=== PATIENT | male | born 1970 | race Caucasian/White ===

== ENCOUNTER 2025-06-10 16:46 | Emergency (ER) | payer OTHER, SELFPAY ==
--- NOTE | 2025-06-10 17:00 | EKG_ITS ---
[address] [address] Test Date: 2025-06-10 Pat Name: Og Christian Department: Room: Gender: Male Neuropsychologist: LEELA : 1970 Requested By: Order Number: [id number] Reading MD: Filippo Jackson Measurements Intervals Burton Rate: 78 P: 70 MA: 142 QRS: 25 QRSD: 84 T: 16 QT: 372 QTc: 424 Interpretive Statements Normal sinus rhythm Electronically Signed On 06-11-2025 8:15:59 PDT by Filippo Jackson
--- NOTE | 2025-06-10 17:00 | DI.RAD.S_ITS ---
PROCEDURE: XR CHEST 1V INDICATIONS: Chest Pain TECHNIQUE: One view of the chest was acquired. COMPARISON: None. FINDINGS: Surgical changes and devices: None. Lungs and pleura: Lungs are clear. No pleural effusions or pneumothorax. Mediastinum: Mediastinal contours appear normal. Heart size is normal. Bones and chest wall: No suspicious bony lesions. Overlying soft tissues appear unremarkable. IMPRESSION: No acute cardiopulmonary abnormality is seen. Dictated by: Uzair Christensen M.D. on 06/10/2025 at 17:14 Approved by: Uzair Christensen M.D. on 06/10/2025 at 17:15
[2025-06-10 17:01] VITALS: BP 146/68; PULSE 75; RESP 14; TEMP 36.6; O2SAT 96; BMI 25.7
[2025-06-10 17:25] LABS: Add Manual Diff / Slide Review NO; Hematocrit 47.8 % (41-53); Hemoglobin 16.7 g/dL (13.5-17.5); Lymphocytes Absolute Auto 1100 /uL (1100-4500); Mean Corpuscular HGB Conc 34.9 % (30-36); Mean Corpuscular Hemoglobin 32.8 PG (26-34); Mean Corpuscular Volume 93.9 fL (80-100); Platelet Count 266 X10^3/uL (150-400)
[2025-06-10 17:36] LABS: INR 0.9 (0.9-1.3); Prothrombin Time 10.6 SECONDS (9.4-12.5)
[2025-06-10 17:39] LABS: PTT Partial Thromboplastin Tim 28 SECONDS (25.1-36.5)
[2025-06-10 17:40] LABS: Alanine Aminotransferase 42 IU/L (<50); Albumin 4.6 g/dL (3.5-5.0); Albumin Globulin Ratio 1.3 (1.0-2.8); Alkaline Phosphatase 58 U/L (38-126); Blood Urea Nitrogen 13 mg/dL (9-20); Calcium 9.2 mg/dL (8.4-10.2); Carbon Dioxide 29 mmol/L (22-32); Chloride 103 mmol/L (98-107); Creatine Kinase 230 U/L (55-170); Estimated Glomerular Filt Rate > 60 mL/min (>60); Globulin 3.5 g/dL (1.7-4.1); Glucose 105 mg/dL (70-99); HEMOLYSIS < 15 (0-50); Lipase 118 U/L (23-300); Magnesium 1.8 mg/dL (1.6-2.3); Potassium 4.3 mmol/L (3.4-5.1); Sodium 139 mmol/L (137-145); Total Protein 8.1 g/dL (6.3-8.2)
[2025-06-10 17:52] LABS: NT-proBNP (BNP-Adult 18+) < 20 pg/mL (<125); Troponin I < 0.012 ng/mL (0.01-0.034)
--- NOTE | 2025-06-10 18:13 | ED.GENADULT ---
HPI - General Adult General Chief complaint: Syncope Stated complaint: Near syncope,pale,dizzy and diaphoretic Time Seen by Provider: 06/10/25 18:01 Source: patient Mode of arrival: EMS History of Present Illness HPI narrative: 54-year-old male patient with a history of tremors and BPH who complains of profound sweating at 9:30 a.m. for about 2 hours along with some lightheadedness and weakness but no confusion or chest pain. No documented fever or chills. He is suspecting a low sugar but did not measure his sugar. He has also, prediabetes. Currently feels back to normal. He had a similar episode about a week ago. Otherwise no complaints. He was seen at the clinic on [facility] and had lab work including a lactate of 3.0. Repeat lactate was 2.0. They advised he come here for further evaluation. Patient denies any cough or URI symptoms. No gastrointestinal infectious disease symptoms or dysuria. Related Data Allergies Allergy/AdvReac Type Severity Reaction Status Date / Time No Known Drug Allergies Allergy Verified 06/10/25 17:01 Review of Systems Review of Systems ROS Unobtainable: All systems reviewed & are unremarkable except as noted in HPI and below Constitutional Constitutional: Reports as per HPI Cardiovascular Cardiovascular: Reports as per HPI Neurologic Neurologic: Reports as per HPI Endocrine Endocrine: Reports as per HPI Patient History Social History Smoking Status: Unknown if ever smoked Smoking Status: Unknown if ever smoked tobacco type: smokeless tobacco Exam Narrative Exam Narrative: General: Alert and conversant. No distress. Appears well nourished and well hydrated Craniofacial: No evidence of trauma. Nontender and no swelling. Eyes: PERRLA EOMI conjunctiva clear HEENT: Oropharynx clear with no swelling, exudate or asymmetry of the pharynx. Nares clear. No sinus tenderness Neck: No tenderness or adenopathy. No meningismus. No JVD Lungs: Clear to auscultation with good air movement. No wheezing, rales or rhonchi. No respiratory distress Cardiac: Regular rate and rhythm with no appreciable murmur or gallop Abdomen: Soft, nontender with no distention or masses. Normal bowel sounds. No rebound or guarding Musculoskeletal: Exam of the extremities, axial spine and ribcage reveals no deformity, bony tenderness or swelling. Range of motion intact Neuro: Alert and oriented. Cranial nerves, motor, sensory and cerebellar all grossly intact. No focal deficit Skin: Warm and normal color. No rashes Psychological: Normal affect and interaction. No evidence of delusion or psychosis. Normal mood. Initial Vital Signs Initial Vital Signs: Vital Signs Temperature 97.8 F 06/10/25 17:01 Pulse Rate 75 06/10/25 17:01 Respiratory Rate 14 06/10/25 17:01 Blood Pressure 146/68 H 06/10/25 17:01 Pulse Oximetry 96 06/10/25 17:01 Oxygen Delivery Method Room Air 06/10/25 17:01 Course Orders Ordered: ED Orders 06/10/25 17:00 XR chest 1V Stat EKG-12 Lead Stat 06/10/25 17:13 Complete Blood Count AUTO DIFF Stat Comprehensive Metabolic Panel Stat Lipase Stat Magnesium Stat NT-proBNP (BNP-Adult 18+) Stat PTT Partial Thromboplastin Junior Stat Prothrombin Time INR Stat Troponin & CK Cardiac Panel Stat 06/10/25 19:36 Urinalysis and Microscopic Stat 06/10/25 19:54 Lactate (Lactic Acid) Stat Discontinued Medications Sodium Chloride (Normal Saline 0.9%) 1,000 mls @ 1,000 mls/hr IV BOLUS ONE Stop: 06/10/25 19:18 Last Infusion: 06/10/25 20:24 Dose: Infused Documented By: Admin: 06/10/25 19:06 Dose: 1,000 mls/hr Documented By: MARTIN Vital Signs Vital signs: Vital Signs - 8 hr 06/10/25 17:01 06/10/25 19:00 06/10/25 19:01 Temperature 97.8 F Pulse Rate 75 77 Respiratory Rate 14 Blood Pressure 146/68 H 120/60 Pulse Oximetry 96 94 Oxygen Delivery Method Room Air 06/10/25 19:01 06/10/25 19:07 06/10/25 19:30 Temperature Pulse Rate 80 78 Respiratory Rate Blood Pressure 138/84 Pulse Oximetry 95 95 Oxygen Delivery Method 06/10/25 19:47 Temperature Pulse Rate 86 Respiratory Rate 16 Blood Pressure 154/88 H Pulse Oximetry 98 Oxygen Delivery Method Medical Decision Making Differential Diagnosis Differential Diagnosis: Hypoglycemia, sepsis, endocrine imbalance or abnormality. Vasovagal presyn Condition is:: Improved (Asymptomatic currently) Lab Data Lab results reviewed: Yes I reviewed the patient's lab results. Lab results narrative: WBCs 11.2 with neutrophils of 88%. CMP and troponin negative. Only exception is CK of 230. 06/10/25 17:13 06/10/25 17:13 Labs: Lab Results 06/10/25 06/10/25 06/10/25 Range/Units 17:13 19:36 19:54 WBC 11.2 H (4.5-11.0) X10^3/uL RBC 5.09 (4.5-5.9) X10^6/uL Hgb 16.7 (13.5-17.5) g/dL Hct 47.8 (41-53) % MCV 93.9 (80-100) fL MCH 32.8 (26-34) PG MCHC 34.9 (30-36) % RDW 12.8 (11.6-14.8) % Plt Count 266 (150-400) X10^3/uL Neut % (Auto) 81.7 H (50-75) % Lymph % (Auto) 10.0 L (25-40) % Daw[place] % (Auto) 7.1 (3-14) % Eos % (Auto) 0.8 L (2-4) % Baso % (Auto) 0.4 (0-2) % Neut # (Auto) 9200 H (1485-1885) /uL Lymph # (Auto) 1100 (4810-8877) /uL Dawes # (Auto) 800 (0-900) /uL Eos # (Auto) 100 (0-450) /uL Baso # (Auto) 0 (0-100) /uL PT 10.6 (9.4-12.5) SECONDS INR 0.9 (0.9-1.3) APTT 28 (25.1-36.5) SECONDS Sodium 139 (137-145) mmol/L Potassium 4.3 (3.4-5.1) mmol/L Chloride 103 (98-107) mmol/L Carbon Dioxide 29 (22-32) mmol/L BUN 13 (9-20) mg/dL Creatinine 0.87 (0.66-1.25) mg/dL Estimated GFR > 60 (>60) mL/min BUN/Creatinine Ratio 14.9 (6-22) Glucose 105 H (70-99) mg/dL Lactate 1.1 (0.7-2.1) mmol/L Calcium 9.2 (8.4-10.2) mg/dL Magnesium 1.8 (1.6-2.3) mg/dL Total Bilirubin 1.0 (0.2-1.3) mg/dL AST 30 (17-59) IU/L ALT 42 (<50) IU/L Alkaline Phosphatase 58 (38-126) U/L Total Creatine Kinase 230 H (55-170) U/L Troponin I < 0.012 (0.01-0.034) ng/mL NT-Pro-B Natriuret Pep < 20 (<125) pg/mL Total Protein 8.1 (6.3-8.2) g/dL Albumin 4.6 (3.5-5.0) g/dL Globulin 3.5 (1.7-4.1) g/dL Albumin/Globulin Ratio 1.3 (1.0-2.8) Lipase 118 (23-300) U/L Urine Color Yellow Urine Appearance Clear Urine pH 6.5 (4.5-8.0) Ur Specific [place] 1.010 (1.000-1.035) Urine Protein Negative (Negative) Urine Glucose (UA) Negative (Negative) g/dL Urine Ketones Negative (NEGATIVE) Urine Occult Blood Negative (Negative) Urine Nitrate Negative (Negative) Urine Bilirubin Negative (NEGATIVE) Urine Urobilinogen 0.2 (0.2) E.U./dL Ur Leukocyte Esterase Negative (NEGATIVE) Urine RBC None seen (0-5/HPF) Urine WBC None seen (0-5/HPF) Ur Squamous Epith Cells None seen (0-5/HPF) Ur Transition Epith Cell None seen (0-5/HPF) Ur Renal Epithelial Cell None seen (0-1/HPF) Urine Bacteria None seen (None) Ur Culture Indicated? Cult not indicated Vol Urine Centrifuged 10ml (spun) ECG Data Attestation: I personally reviewed and interpreted this ECG as follows: (Sinus rhythm with rate of 78. Normal axis and intervals. No ischemic changes) MDM Narrative Medical decision making narrative: Patient had a less than 1 hour episode of significant diaphoresis with lightheadedness but no chest pain, palpitations or signs or symptoms of infectious disease. He had another similar episode a week ago. This is possibly related to vasovagal response or to hypoglycemia but physical exam, lab work and EKG in the ER or reassuring. Does not meet criteria for sepsis although his initial lactate was mildly elevated it was probably from the overall stress reaction. Currently back to normal. Plan is for him to monitor symptoms and follow up closely with primary care. May need further evaluation or referral to Cardiology or endocrine. Discharge Plan Departure Patient Disposition: Home Clinical Impression: Diaphoresis, Episodic lightheadedness Instructions: Hypoglycemia Activity Restrictions/Additional Instructions: Assessment: Episode of diaphoresis and lightheadedness with initially mildly elevated lactate which returned to normal. Does not appear to be septic based on complete labs and normal lactate in the ER. Possible hypoglycemic episode or presyncopal episode causing the symptoms. Plan: Hydration, rest and supportive care and monitor symptoms. Follow up closely with primary care for reassessment. May need referral for further workup if this is thought to be vasovagal symptoms. Stand Alone Forms: Patient Portal/API
[2025-06-10 19:00] VITALS: PULSE 77; O2SAT 94
[2025-06-10 19:01] VITALS: BP 120/60; PULSE 80; O2SAT 95
[2025-06-10] MEDS: SODIUM CHLORIDE 0.9% 1,000 ML 1000 ML IV (19:06)
[2025-06-10 19:07] VITALS: PULSE 78; O2SAT 95
[2025-06-10 19:30] VITALS: BP 138/84
[2025-06-10 19:47] VITALS: BP 154/88; PULSE 86; RESP 16; O2SAT 98
[2025-06-10 19:51] LABS: Appearance Urine UA CLEAR; Bilirubin Urine UA NEGATIVE (NEGATIVE); Color Urine UA YELLOW; Glucose Urine UA NEGATIVE (Negative); Ketones Urine UA NEGATIVE (NEGATIVE); Leukocyte Esterase Urine UA NEGATIVE (NEGATIVE); Nitrite Urine UA NEGATIVE (Negative); Occult Blood Urine UA NEGATIVE (Negative); Protein Urine UA NEGATIVE (Negative); Specific Gravity Urine UA 1.010 (1.000-1.035); Urobilinogen Urine UA 0.2 E.U./dL (0.2); pH Urine UA 6.5 (4.5-8.0)
[2025-06-10 20:03] LABS: Culture Indicated Urine Cult Not Indicated
[2025-06-10 20:15] LABS: Lactate (Lactic Acid) 1.1 mmol/L (0.7-2.1)
--- NOTE | 2025-06-10 20:27 | PC.NURSE ---
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
== END 2025-06-10 20:23 | disposition home or self-care (01) ==
PROVIDERS: Emergency Medicine; Emergency Provider Emergency Medicine
DX: R61 Generalized hyperhidrosis (principal); R42 Dizziness and giddiness
CPT/HCPCS: 36415; 71045; 80053; 81001; 82550; 83605; 83690; 83735; 83880; 84484; 85025; 85610; 85730; 93005; 96360; 99283; 99284